=== PATIENT | male | born 1945 ===

== ENCOUNTER 2021-11-22 10:25 | Inpatient (IN) | payer OTHER ==
[~2021-11-22] VITALS: Ht 167.6 cm; Wt 79.5 kg
[2021-11-22 11:19] LABS: COVID AG,FIA SOURCE NASOPHARYNGEAL
[2021-11-22 11:24] LABS: BASOPHILS % (AUTO) 0.3 % (0.0-2.0); EOSINOPHILS % (AUTO) 2.4 % (1.0-6.0); HEMOGLOBIN 16.2 g/dL (13.5-17.5); LYMPHOCYTES # (AUTO) 0.7 K/uL (1.0-4.8); LYMPHOCYTES % (AUTO) 8.3 % (22.0-44.0); MEAN CORPUSCULAR HEMOGLOBIN 26.8 pg (26.0-34.0); MEAN CORPUSCULAR HGB CONC 32.4 G/dL (31.0-37.0); MEAN CORPUSCULAR VOLUME 83 fL (80-100); MONOCYTES % (AUTO) 11.5 % (2.0-9.0); NEUTROPHILS # (AUTO) 6.7 K/uL (1.8-7.7); NEUTROPHILS % (AUTO) 77.5 % (40.0-70.0); PLATELET COUNT (AUTO) 192 K/uL (150-450); RED BLOOD CELL COUNT(AUTO) 6.06 MIL/uL (4.50-5.90); RED CELL DISTRIBUTION WIDTH 14.1 % (11.5-14.5)
[2021-11-22 11:45] LABS: ANION GAP 6 mmol/L (8-16); CALCIUM, TOTAL 10.4 mg/dL (8.8-10.5); CARBON DIOXIDE 29 mmol/L (22-29); CHLORIDE 106 mmol/L (98-107); CREATININE 1.06 mg/dL (0.60-1.30); GLOMERULAR FILTR. RATE CALC > 60 mL/min (>60); GLUCOSE,RANDOM 100 mg/dL (70-110); POTASSIUM 4.5 mmol/L (3.5-5.1); SODIUM SERUM 141 mmol/L (136-145); UREA NITROGEN, BLOOD 22 mg/dL (7-18)
[2021-11-22] MEDS ORDERED: ACETAMINOPHEN 325 MG TABLET PO PRN (11:45)
[2021-11-22] MEDS ORDERED: 0.9% SODIUM CHLORIDE 10 ML SYRINGE IVP PRN (11:45)
[2021-11-22] MEDS ORDERED: ONDANSETRON HCL 4 MG/2 ML VIAL IVP PRN (11:45)
[2021-11-22 11:49] LABS: ALANINE AMINOTRANSFERASE 49 U/L (12-78); ALBUMIN 3.5 g/dL (3.4-5.0); ALKALINE PHOSPHATASE 72 U/L (46-116); ASPARTATE AMINOTRANSFERASE 26 U/L (15-37); BILIRUBIN,TOTAL 0.7 mg/dL (0.1-1.0)
[2021-11-22 12:30] VITALS: BP 145/76
[2021-11-22] MEDS ORDERED: METO25 PO (14:27)
[2021-11-22] MEDS ORDERED: METF-911 PO (14:27)
[2021-11-22] MEDS ORDERED: EZET10TA13 PO (14:27)
[2021-11-22] MEDS ORDERED: LEVO125C4 PO (14:27)
[2021-11-22] MEDS ORDERED: ASPI81TA39 PO (14:27)
[2021-11-22] MEDS ORDERED: LOSA-382 PO (14:27)
[2021-11-22] MEDS ORDERED: TRAZ-184 PO (14:27)
[2021-11-22] MEDS ORDERED: PRAM0.258 PO (14:27)
[2021-11-22] MEDS ORDERED: CLOP75TA60 PO (14:27)
[2021-11-22] MEDS ORDERED: TRIA50CA3 PO (14:27)
[2021-11-22] MEDS ORDERED: ROSU20TA73 PO (14:27)
[2021-11-22] MEDS ORDERED: BUPR1PAT TP (14:27)
[2021-11-22] MEDS ORDERED: OMEP20 PO (14:27)
[2021-11-22] MEDS ORDERED: LEVOTHYROXINE SODIUM 125 MCG TABLET PO ONE (14:45)
[2021-11-22 15:23] VITALS: BP 138/67
[2021-11-22] MEDS: EZETIMIBE 10 MG TABLET PO SCH (16:01)
[2021-11-22] MEDS: CLOPIDOGREL BISULFATE 75 MG TABLET PO SCH (16:02)
[2021-11-22] MEDS: ASPIRIN 81 MG CHEWABLE TABLET PO SCH (16:02)
[2021-11-22] MEDS: MetFORMIN HCL 500 MG ER TABLET PO SCH (18:07)
[2021-11-22] MEDS: PRAMIPEXOLE DI-HCL 0.25 MG TABLET PO SCH (19:17)
[2021-11-22 20:14] VITALS: BP 121/59
[2021-11-22] MEDS: METOPROLOL TARTRATE 25 MG TABLET PO SCH (20:23)
[2021-11-22] MEDS: ROSUVASTATIN CALCIUM 20 MG TABLET PO SCH (20:23)
[2021-11-22] MEDS: TraZODone HCL 50 MG TABLET PO SCH (20:24)
[2021-11-22] MEDS: LOSARTAN POTASSIUM 50 MG TABLET PO SCH (20:24)
[2021-11-23 04:44] VITALS: BP 111/69
[2021-11-23] MEDS: LEVOTHYROXINE SODIUM 125 MCG TABLET PO SCH (06:10)
[2021-11-23 08:03] VITALS: BP 126/76
[2021-11-23] MEDS ORDERED: PANTOPRAZOLE SODIUM 40 MG DR TABLET PO SCH (09:00)
[2021-11-23] MEDS ORDERED: TRIAMTERENE/HCTZ 37.5-25 MG CAPSULE PO SCH (09:00)
[2021-11-23] MEDS: CLOPIDOGREL BISULFATE 75 MG TABLET PO SCH (09:06)
[2021-11-23] MEDS: ASPIRIN 81 MG CHEWABLE TABLET PO SCH (09:06)
[2021-11-23] MEDS: EZETIMIBE 10 MG TABLET PO SCH (09:06)
[2021-11-23] MEDS: PRAMIPEXOLE DI-HCL 0.25 MG TABLET PO SCH (09:07)
[2021-11-23 16:10] VITALS: BP 141/70
[2021-11-23] MEDS: MetFORMIN HCL 500 MG ER TABLET PO SCH (17:31)
[2021-11-23 19:40] VITALS: BP 132/72
[2021-11-23] MEDS: TraZODone HCL 50 MG TABLET PO SCH (20:39)
[2021-11-23] MEDS: ROSUVASTATIN CALCIUM 20 MG TABLET PO SCH (20:39)
[2021-11-23] MEDS: METOPROLOL TARTRATE 25 MG TABLET PO SCH (20:40)
[2021-11-23] MEDS: LOSARTAN POTASSIUM 50 MG TABLET PO SCH (20:41)
[2021-11-24 04:41] VITALS: BP 128/71
[2021-11-24] MEDS: LEVOTHYROXINE SODIUM 125 MCG TABLET PO SCH (06:30)
== END 2021-11-24 06:30 | DRG 897 ==
LOC: EMS 10:33 → 6S 11:20
PROVIDERS: ADMIT Hospitalist; ATTEND Hospitalist
DX: F11.23 Opioid dependence with withdrawal (principal); Z20.822 Contact with and (suspected) exposure to COVID-19; E03.9 Hypothyroidism, unspecified; E11.9 Type 2 diabetes mellitus without complications; E78.5 Hyperlipidemia, unspecified; G25.81 Restless legs syndrome; I10 Essential (primary) hypertension; Z79.899 Other long term (current) drug therapy
CPT/HCPCS: 80053; 85025; 99285; G0480